=== PATIENT | female | born 1950 | race Caucasian/White ===

== ENCOUNTER → 2023-09-18 12:27 | Outpatient (REF) | payer MEDICARE, SELFPAY | LOC: RCS 12:27 | PROVIDERS: ATTENDING PHYSICIAN Internal Medicine; FAMILY PHYSICIAN Family Medicine | DX: R01.1 Cardiac murmur, unspecified (principal); I35.0 Nonrheumatic aortic (valve) stenosis; I25.10 Atherosclerotic heart disease of native coronary artery without angina pectoris; I10 Essential (primary) hypertension | CPT/HCPCS: 93306 ==

== ENCOUNTER 2023-11-30 07:42 | Emergency (ER) | payer MEDICARE, SELFPAY ==
[2023-11-30 07:46] VITALS: BP 94/59
--- NOTE | 2023-11-30 07:57 | ED.GENMED ---
History of Present Illness
General
Chief Complaint: Back Pain
Time Seen by Provider: 11/30/23 07:57
Travel History
Have you had any contact with someone who has COVID-19?: No
Do you have any symptoms of coronavirus? Fever > 100 degrees, chills, cough, shortness of breath, sore throat, loss of taste or smell, muscle aches, or headache?: No
History of Present Illness
History of Present Illness:
HPI: The patient presents with left-sided upper back pain. It started out as bilateral upper back pain. She no longer has right-sided upper back pain. She has no shortness of breath. She does use oxygen chronically for COPD. She also had some
pain in the 'left boob'. She takes a baby aspirin every other day but does not take anticoagulation. She has tried some Tylenol but no NSAIDs.
EXAM:
GENERAL: Patient appears chronically ill and is wearing nasal
HEENT: Moist oral mucosa
CARDIOVASCULAR: No murmurs, normal heart rate, regular rhythm, No chest wall tenderness
PULMONARY: No respiratory distress, decreased breath sounds equally
ABDOMEN: Soft with no peritoneal signs, no tenderness
BACK: There is tenderness and palpable muscle rope to the left periscapular region
NEUROLOGIC: Good strength all extremities, no coordination deficits
PSYCHIATRIC: Appropriate mental status, normal insight and judgement
EXTREMITIES: Nontender, no edema, moves all extremities equally
SKIN: No rash, no lesions
TIME OF INITIAL ENCOUNTER: 8 AM
NUMBER AND COMPLEXITY OF PROBLEMS ADDRESSED AT THE ENCOUNTER
� Chronic conditions affecting care: Oxygen dependent COPD, diabetes, hypothyroidism, high blood pressure, hyperlipidemia
� Acute Exacerbation and/or Progression of Chronic Illness: This is an acute problem
� Differential Diagnosis includes: Muscle strain, spasm, pneumonia unlikely
AMOUNT AND/OR COMPLEXITY OF DATA TO BE REVIEWED AND ANALYZED
� I performed an independent evaluation of and my interpretation is:
EKG: Sinus 78, nonspecific ST abnormality, no significant change from 09/25/2017
CT:
X-rays: Chest x-ray reviewed personally viewed and appears overall improved compared to prior, no clear evidence of acute abnormality
Laboratory Studies:
Other:
� Review of other/old records: I reviewed records, the patient had an echo 2 months ago that showed EF of 60 to 65% along with mild to moderate aortic stenosis
� Clinical information was obtained by an independent historian: I spoke to daughter at bedside
� Prescriptions/Medications Considered but not given:
� Further testing considered but not performed:
RISK OF COMPLICATIONS AND/OR MORBIDITY OR MORTALITY OF PATIENT MANAGEMENT
� Social determinants of health affecting care: Lives at home with oxygen
� Discussion with other providers:
� Escalation of care including admission/observation vs risk of discharge considered: Strongly suspect muscular etiology however given patient's COPD history we will also obtain x-ray. Initial blood pressure reading systolic was
only 94 repeat prior to discharge is now up to 121 without intervention. She does take amlodipine. Recommend intermittent use of NSAIDs in addition to Tylenol. I also suggest that she try the Salonpas or [id number] lidocaine patches.
Past History
Past History
ED Past Medical History: COPD, HTN, Hypercholesterolemia, NIDDM, Hypothyroidism and Other (Humeral Fx, AAA that they are watching)
ED Past Surgical History: None
Patient has exhibited threatening behavior?: No
Social History
Tobacco: Smoker
Alcohol: None
Personal: Single
Living: with family
Phy Exam
Physical Exam
Physical Exam:
See HPI
Course
Orders/Labs/Results
Orders:
Orders
11/30/23 08:02
CR Chest - 2 Views Urgent
Comment:
Reason For Exam: L upper back pain
11/30/23 09:23
Electrocardiogram (*1) Urgent
Reason for Study: Chest Pain
EKG- Treatment ONCE
Vital Signs
Blood pressure: 121/41
Initial and Last Documented VS:
Initial Vital Signs
Temp Pulse Resp BP Pulse Ox
99.8 F 84 18 94/59 98
11/30/23 07:46 11/30/23 07:46 11/30/23 07:46 11/30/23 07:46 11/30/23 07:46
Last Documented Vital Signs
Temp Pulse Resp BP Pulse Ox
99.8 F 84 18 121/41 98
11/30/23 07:46 11/30/23 07:46 11/30/23 07:46 11/30/23 09:46 11/30/23 07:46
*Critical Care Note
Total Time (30-74mins, 75-104mins- exclusive of procedures): Not Applicable
ED Attending Note
-
Portions of this chart may have been created with voice recognition software.� Occasional wrong word or��sound alike� substitutions may have occurred due to the inherent limitations of voice recognition software.
Discharge Plan
Departure
Patient Disposition: Home (Routine Discharge)
Date of Disposition: 11/30/23
Time of Disposition: 09:41
Patient with high blood pressure during this ER visit?: No
Discharge Problem:
Acute upper back pain
Instructions: Upper Back Pain (DC)
Prescriptions:
No Action
levothyroxine 175 MCG tablet
175 mcg PO DAILY
acetaminophen 325 MG tablet
650 mg PO Q6HPRN PRN (Reason: mild pain/ fever>100.5F) 0RF
miconazole nitrate [Miconazorb AF] 1 APPLIC powder
1 applic topical BID Qty: 1 0RF
losartan 50 MG tablet
100 mg PO DAILY Qty: 0 0RF
atorvastatin 40 MG tablet
40 mg PO DAILY Qty: 0 0RF
amlodipine 5 MG tablet
5 mg PO DAILY Qty: 0 0RF
aspirin 81 MG tablet,delayed release (DR/EC)
81 mg PO Q48H Qty: 0 0RF
fluticasone propion-salmeterol 1 DISK blister with device
1 puff inhalation R BID Qty: 0 0RF
Referrals:
Brennan Rutherford, [Family Provider] -
Activity Restrictions/Additional Instructions:
You could try intermittent use of NSAIDs (ibuprofen) that you can take 3 of these at a time but I would recommend only taking once per day as you are take aspirin intermittently. Return here if worse.
Interventions
Interventions:
*Risk Screen - Suicide Last Done: 11/30/23 07:46
*General Assessment Last Done: 11/30/23 07:46
*Neglect/Abuse Screening Last Done: 11/30/23 07:46
ED- Fall Risk Assessment Last Done: 11/30/23 08:21
*ED COVID-19 Vaccine History Last Done: 11/30/23 08:21
ED-Musculoskeletal Assessment Last Done: 11/30/23 08:21
Discharge Date and Time
Print Language: POLISH
[2023-11-30 10:23] VITALS: BP 122/83
== END 2023-11-30 10:26 | disposition home or self-care (01) ==
LOC: EMR 07:42
PROVIDERS: EMERGENCY PHYSICIAN Emergency Medicine; FAMILY PHYSICIAN Family Medicine
DX: M54.6 Pain in thoracic spine (principal); R07.89 Other chest pain; J44.9 Chronic obstructive pulmonary disease, unspecified; I35.0 Nonrheumatic aortic (valve) stenosis; E78.00 Pure hypercholesterolemia, unspecified; E11.9 Type 2 diabetes mellitus without complications; E03.9 Hypothyroidism, unspecified; I71.40 Abdominal aortic aneurysm, without rupture, unspecified; I10 Essential (primary) hypertension; F17.200 Nicotine dependence, unspecified, uncomplicated; Z99.81 Dependence on supplemental oxygen; Z79.82 Long term (current) use of aspirin; Z79.899 Other long term (current) drug therapy; Z88.8 Allergy status to other drugs, medicaments and biological substances
CPT/HCPCS: 99283; 71046; 93005

== ENCOUNTER → 2024-09-19 09:30 | Outpatient (REF) | payer MEDICARE, SELFPAY | LOC: RAD 09:30 | PROVIDERS: ATTENDING PHYSICIAN Internal Medicine Critical Care Medicine; FAMILY PHYSICIAN Family Medicine | DX: Z87.891 Personal history of nicotine dependence (principal) | CPT/HCPCS: 71271 ==

== ENCOUNTER 2025-06-01 11:41 | Emergency (ER) | payer MEDICARE, SELFPAY ==
[2025-06-01] VITALS (7 sets, daily range): BP systolic 110–156; BP diastolic 57–101
--- NOTE | 2025-06-01 15:38 | ED.GENMED ---
History of Present Illness
<Clair Gould MD, Resident - Last Filed: 06/01/25 17:34>
General
Chief Complaint: Swelling
Source: patient
Time Seen by Provider: 06/01/25 13:57
History of Present Illness
History of Present Illness:
Brittny is a 75-year-old female with past medical history significant for essential hypertension, hyperlipidemia, hypothyroidism, COPD on home oxygen therapy 2 L via nasal cannula, smoker who is here with complaint of left lower leg swelling.
She noticed her leg getting heavier and swollen from last 1 week, today she noticed it to be more prominent and came to the ER for further evaluation. She does not remember any trauma/injury to left leg. Otherwise she feels well and denies any
exacerbation in shortness of breath, PND, chest pain, lightheadedness, dizziness, fever, chills, syncope or near syncopal episodes.
Past History
<Clair Gould MD, Resident - Last Filed: 06/01/25 17:34>
Past History
ED Past Medical History: COPD, HTN, Hypercholesterolemia, NIDDM, Hypothyroidism and Other (Humeral Fx, AAA that they are watching)
ED Past Surgical History: None
Patient has exhibited threatening behavior?: No
Social History
Tobacco: Smoker
Alcohol: None
Personal: Single
Living: with family
Review of Systems
<Clair Gould MD, Resident - Last Filed: 06/01/25 17:34>
Review of Systems
All Other Systems: ROS reviewed and negative except as documented in HPI and ROS
Phy Exam
<Clair Gould MD, Resident - Last Filed: 06/01/25 17:34>
General Physical Exam
General Presentation: well appearing and no apparent distress
General age: appears stated age
General Skin: warm and dry
General Habitus: normal
General Mental: alert
Cardiovascular Exam
Cardiovascular Exam: regular rate/rhythm, normal peripheral pulses and other (Left lower leg swelling)
Pulmonary Exam
Pulmonary Exam: other (Poor respiratory effort, decreased breath sounds due to body habitus, breathing on 2 L of oxygen via nasal cannula)
Gastrointestinal Exam
Gastrointestinal Exam: normal bowel sounds, non tender and soft
Neurological Exam
Neurological Exam: alert, oriented x3, no motor deficits and speech normal
Musculoskeletal Exam
Musculoskeletal Exam: edema (Left lower leg swollen, warm and red as compared to right leg) and neuro vasc intact
Skin Exam
Skin Exam: other (thick yellow nails, flaking of skin)
Psychiatric Exam
Psychiatric Exam: normal mood/affect
Scores
<Clair Gould MD, Resident - Last Filed: 06/01/25 17:34>
Heart Failure Risk
Heart Failure Risk Score: Not Applicable
Course
<Clair Gould MD, Resident - Last Filed: 06/01/25 17:34>
Orders/Labs/Results
Orders:
Orders
06/01/25 11:56
US Periph Venous LOWER Ext LT Urgent
Comment:
Reason For Exam: swelling
06/01/25 15:38
CeFAZolin 2 GRAM [Ancef] 2 grams in 10 ml IV NOW
06/01/25 15:47
CBC/With Diff [Complete Blood Count/With Diff] Urgent
CMP [Comprehensive Metabolic Panel] Urgent
Abnormal Lab Results
06/01/25
15:47
RBC 4.03 L 10^6/uL
(4.20-5.40)
Hgb 11.8 L g/dL
(12.0-16.0)
Hct 36.5 L %
(37.0-47.0)
MCHC 32.3 L g/dL
(33.0-37.0)
RDW 15.3 H %
(11.5-14.5)
Abs Immat Gran (auto) 0.1 H 10^3/uL
(0-0.05)
Absolute Monos (auto) 0.7 H 10^3/uL
(0.1-0.6)
Immature Gran % 1.1 H %
(0-0.5)
Lymphocytes % 18.8 L %
(20.5-51.1)
Carbon Dioxide 34 H mmol/L
(22-30)
Glucose 160 H mg/dl
(70-99)
06/01/25 15:47
06/01/25 15:47
Vital Signs
Initial and Last Documented VS:
Initial Vital Signs
Temp Pulse Resp BP Pulse Ox
98.5 F 74 20 131/101 95
06/01/25 11:51 06/01/25 11:51 06/01/25 11:51 06/01/25 11:51 06/01/25 11:51
Last Documented Vital Signs
Temp Pulse Resp BP Pulse Ox
98.5 F 63 21 139/61 95
06/01/25 11:51 06/01/25 17:00 06/01/25 17:00 06/01/25 17:28 06/01/25 17:28
Bobylt;Julian Smith, DO - Last Filed: 06/01/25 16:02>
Orders/Labs/Results
Orders:
Orders
06/01/25 11:56
US Periph Venous LOWER Ext LT Urgent
Comment:
Reason For Exam: swelling
06/01/25 15:38
CeFAZolin 2 GRAM [Ancef] 2 grams in 10 ml IV NOW
06/01/25 15:47
CBC/With Diff [Complete Blood Count/With Diff] Urgent
CMP [Comprehensive Metabolic Panel] Urgent
Abnormal Lab Results
06/01/25
15:47
RBC 4.03 L 10^6/uL
(4.20-5.40)
Hgb 11.8 L g/dL
(12.0-16.0)
Hct 36.5 L %
(37.0-47.0)
MCHC 32.3 L g/dL
(33.0-37.0)
RDW 15.3 H %
(11.5-14.5)
Abs Immat Gran (auto) 0.1 H 10^3/uL
(0-0.05)
Absolute Monos (auto) 0.7 H 10^3/uL
(0.1-0.6)
Immature Gran % 1.1 H %
(0-0.5)
Lymphocytes % 18.8 L %
(20.5-51.1)
Carbon Dioxide 34 H mmol/L
(22-30)
Glucose 160 H mg/dl
(70-99)
06/01/25 15:47
06/01/25 15:47
Vital Signs
Initial and Last Documented VS:
Initial Vital Signs
Temp Pulse Resp BP Pulse Ox
98.5 F 74 20 131/101 95
06/01/25 11:51 06/01/25 11:51 06/01/25 11:51 06/01/25 11:51 06/01/25 11:51
Last Documented Vital Signs
Temp Pulse Resp BP Pulse Ox
98.5 F 63 21 139/61 95
06/01/25 11:51 06/01/25 17:00 06/01/25 17:00 06/01/25 17:28 06/01/25 17:28
<Clair Gould MD, Resident - Last Filed: 06/01/25 17:34>
MDM/Problems Addressed
Differential Diagnosis Includes:
Deep venous thrombosis
Cellulitis
Stasis dermatitis
Chronic lymphedema
MDM/Problems Addressed:
Peripheral venous ultrasound shows no evidence of blood clot in left leg
Based on clinical appearance, most likely cellulitis, CBC AND CMP LOOKS GOOD
gave one dose of Ancef 2g Iv in the er
reassured and discharged on oral antibiotics
<Clair Gould MD, Resident - Last Filed: 06/01/25 17:34>
*Pulse Oximetry
SaO2: 95
Nasal Cannula flow liters per minute: 2
Patient hypoxic: no
*Critical Care Note
Total Time (30-74mins, 75-104mins- exclusive of procedures): Not Applicable
ED Attending Note
<Clair Gould MD, Resident - Last Filed: 06/01/25 17:34>
-
Portions of this chart may have been created with voice recognition software.� Occasional wrong word or��sound alike� substitutions may have occurred due to the inherent limitations of voice recognition software.
<Julian Smith, DO - Last Filed: 06/01/25 16:02>
ED Attending Note
Patient seen and examined by attending physician: Yes
I performed a history and physical exam of patient and discussed management with resident, I reviewed resident's note and agree with documented findings and plan of care.: Yes
ED Attending Note:
Seen with resident examined independently 75-year-old female chronically ill on oxygen for COPD atraumatic swelling of the left lower extremity, warm red bilateral venous stasis changes with superimposed cellulitis on the left negative Doppler will
start Ancef check labs disposition pending
Discharge Plan
Departure
Patient Disposition: Home (Routine Discharge)
Date of Disposition: 06/01/25
Time of Disposition: 17:28
Patient with high blood pressure during this ER visit?: No
Discharge Problem:
Cellulitis
Instructions: Dependent Edema (DC), Stasis Dematitis
Prescriptions:
New
cephalexin 500 mg capsule
500 mg PO QID 10 Days Qty: 40 0RF
No Action
levothyroxine 175 MCG tablet
175 mcg PO DAILY
acetaminophen 325 MG tablet
650 mg PO Q6HPRN PRN (Reason: mild pain/ fever>100.5F) 0RF
miconazole nitrate [Miconazorb AF] 1 APPLIC powder
1 applic topical BID Qty: 1 0RF
losartan 50 MG tablet
100 mg PO DAILY Qty: 0 0RF
atorvastatin 40 MG tablet
40 mg PO DAILY Qty: 0 0RF
amlodipine 5 MG tablet
5 mg PO DAILY Qty: 0 0RF
aspirin 81 MG tablet,delayed release (DR/EC)
81 mg PO Q48H Qty: 0 0RF
fluticasone propion-salmeterol 1 DISK blister with device
1 puff inhalation R BID Qty: 0 0RF
Referrals:
Brennan Rutherford DO [Family Provider, Family Practice]
Activity Restrictions/Additional Instructions:
TAKE ANTIBIOTICS PRESCRIBED WITH A MEAL TO AVOID STOMACH ISSUES
KEEP LEGS ELEVATED TO HELP WITH EDEMA
MAINTAIN GOOD HYDRATION
PLEASE RETURN TO ER IN CASE OF PERSISTENT OR SEVERE SYMPTOMS LIKE FEVER CHILLS AND FEELING SICK
Interventions
Interventions:
*Risk Screen - Suicide Last Done: 06/01/25 11:51
*General Assessment Last Done: 06/01/25 11:51
*Neglect/Abuse Screening Last Done: 06/01/25 11:51
*ED- Fall Risk Assessment Last Done: 06/01/25 15:50
*ED COVID-19 Vaccine History Last Done: 06/01/25 11:51
*ED Influenza Vaccine History Last Done: 06/01/25 11:51
ED- Cardiac Assessment Last Done: 06/01/25 15:52
ED- Pulmonary Assessment Last Done: 06/01/25 15:52
ED-Skin Assessment Last Done: 06/01/25 15:52
Discharge Date and Time
Print Language: CANADIAN
[2025-06-01] MEDS: ANCEF 10 IV (15:47)
[2025-06-01 15:54] LABS: Hematocrit 36.5 % (37.0-47.0); Hemoglobin 11.8 g/dL (12.0-16.0); Mean Corp Hgb Conc. 32.3 g/dL (33.0-37.0); Mean Corpuscular Volume 90.6 fL (81.0-99.0); Nucleated Red Blood Cells % 0 %; Platelet Count 239 10^3/uL (130-400); Red Cell Dist. Width 15.3 % (11.5-14.5)
[2025-06-01 16:11] LABS: ALT (SGPT) 14 U/L (0-35); AST (SGOT) 19 U/L (14-36); Albumin 3.5 g/dl (3.5-5.0); Alkaline Phosphatase 66 U/L (38-126); Blood Urea Nitrogen 11 mg/dl (7-17); Calcium 9.1 mg/dl (8.4-10.2); Carbon Dioxide 34 mmol/L (22-30); Chloride 103 mmol/L (98-107); Glucose 160 mg/dl (70-99); Potassium 4.4 mmol/L (3.5-5.1); Sodium 136 mmol/L (135-145); Total Protein 6.6 g/dl (6.3-8.2); eGFR > 60.00
== END 2025-06-01 18:17 | disposition home or self-care (01) ==
LOC: EMR 11:41
PROVIDERS: EMERGENCY PHYSICIAN Emergency Medicine; FAMILY PHYSICIAN Family Medicine
DX: L03.116 Cellulitis of left lower limb (principal); R22.42 Localized swelling, mass and lump, left lower limb; E03.9 Hypothyroidism, unspecified; E11.9 Type 2 diabetes mellitus without complications; E78.00 Pure hypercholesterolemia, unspecified; I10 Essential (primary) hypertension; J44.9 Chronic obstructive pulmonary disease, unspecified; F17.200 Nicotine dependence, unspecified, uncomplicated; Z86.79 Personal history of other diseases of the circulatory system; Z99.81 Dependence on supplemental oxygen
CPT/HCPCS: 99284; 96374; 80053; 85025; 93971